=== PATIENT | female | born 1995 | race African-American/Black ===

== ENCOUNTER 2021-05-16 18:16 | Emergency (ER) | payer MEDICARE, OTHER ==
[~2021-05-16] VITALS: Ht 160 cm; Wt 131.5 kg
== END 2021-05-16 19:02 | disposition home or self-care (01) ==
LOC: ER 18:43
DX: S93.402A Sprain of unspecified ligament of left ankle, initial encounter (principal); X50.1XXA Overexertion from prolonged static or awkward postures, initial encounter; Y93.01 Activity, walking, marching and hiking; Y92.89 Other specified places as the place of occurrence of the external cause; Z33.1 Pregnant state, incidental
CPT/HCPCS: 99282